=== PATIENT | female | born 1980 | race African-American/Black ===

== ENCOUNTER 2017-05-17 14:46 | Emergency (ER) | payer SELFPAY ==
[2017-05-17 14:52] VITALS: BP 145/88
[2017-05-17] MEDS ORDERED: NORMAL SALINE 1000 ML 1,000 ML IV PRN (16:33)
[2017-05-17] MEDS ORDERED: DIPHENHYDRAMINE HCL 50 MG/ML VIAL IV ONE (16:34)
[2017-05-17] MEDS ORDERED: METOCLOPRAMIDE HCL INJ/PF 10 MG/2 ML SDV IV ONE (16:34)
[2017-05-17 17:33] LABS: ABSOLUTE LYMPHOCYTES (AUTO) 1.6 10^3/uL (0.5-4.7); ABSOLUTE MONOCYTES (AUTO) 0.8 10^3/uL (0.1-1.4); BASOPHILS % (AUTO) 0.4 % (0-2); EOSINOPHILS % (AUTO) 0.7 % (0-6); HEMATOCRIT 33.6 % (36.0-47.0); HEMOGLOBIN 10.1 g/dL (12.0-15.5); HGB HCT DIFFERENCE -3.3; LYMPHOCYTES % (AUTO) 25.4 % (13-45); MEAN CORPUSCULAR HEMOGLOBIN 22.6 pg (27.0-33.4); MEAN CORPUSCULAR HGB CONC 30.2 g/dL (32.0-36.0); MEAN CORPUSCULAR VOLUME 75 fl (80-97); MONOCYTES % (AUTO) 11.9 % (3-13); RED CELL DISTRIBUTION WIDTH 17.6 % (11.5-14.0); SEGMENTED NEUTROPHILS % (AUTO) 61.6 % (42-78); WHITE BLOOD COUNT 6.5 10^3/uL (4.0-10.5)
[2017-05-17 17:47] LABS: ALANINE AMINOTRANSFERASE 22 U/L (9-52); ALBUMIN 3.7 g/dL (3.5-5.0); ALKALINE PHOSPHATASE 93 U/L (38-126); ANION GAP 12 (5-19); ASPARTATE AMINO TRANSFERASE 18 U/L (14-36); BILIRUBIN,DIRECT 0.3 mg/dL (0.0-0.4); BILIRUBIN,TOTAL 0.6 mg/dL (0.2-1.3); BLOOD UREA NITROGEN 10 mg/dL (7-20); CALCIUM 8.4 mg/dL (8.4-10.2); CARBON DIOXIDE 26 mmol/L (22-30); CHLORIDE 100 mmol/L (98-107); CREATININE RESULT 0.69 mg/dL (0.52-1.25); GLUCOSE 84 mg/dL (75-110); LIPASE 15.6 U/L (23-300); POTASSIUM 4.5 mmol/L (3.6-5.0); SODIUM 137.6 mmol/L (137-145); TOTAL PROTEIN 7.2 g/dL (6.3-8.2)
[2017-05-17] MEDS ORDERED: METRONIDAZOLE 500 MG TABLET PO ONE ×2 (18:01→20:32)
--- NOTE | 2017-05-17 19:28 | RADIOLOGY REPORT (SQ) ---
EXAM DESCRIPTION: U/S ABDOMEN COMPLETE W/DOPPLER COMPLETED DATE/TIME: 05/17/2017 7:12 pm REASON FOR STUDY: upper abdominal pain COMPARISON: None. TECHNIQUE: Dynamic and static grayscale images acquired of the abdomen and recorded on PACS. Victoriao james selected color Doppler and spectral images recorded. LIMITATIONS: Study limited due to acoustical interference from fat or from air in the bowel. FINDINGS: PANCREAS: Poorly seen secondary to acoustical interference from fat or from air in the bow el. No visualized masses. Duct normal caliber as seen. LIVER: Echotexture is coarse with increased echogenicity consistent with fatty infiltration. LIVER VASCULATURE: Normal directional flow of the main portal vein and hepatic veins. GALLBLADDER: No stones. Normal wall thickness. No pericholecystic fluid. ULTRASOUND-DETECTED BARRAGAN'S SIGN: Negative. INTRAHEPATIC DUCTS AND COMMON DUCT: CBD and intrahepatic ducts normal caliber. No filling defects. INFERIOR VENA CAVA: Normal flow. AORTA: No aneurysm. RIGHT KIDNEY: Normal size. Normal echogenicity. No solid or suspicious masses. No hydronephrosis. No calcifications. LEFT KIDNEY: Normal size. Normal echogenicity. No solid or suspicious masses. No hydronephrosis. No calcifications. SPLEEN:Normal size. No solid masses. PERITONEAL AND PLEURAL SPACES: No ascites or effusions. OTHER: No other significant finding. IMPRESSION: FATTY INFILTRATION OF THE LIVER. NO OTHER SIGNIFICANT FINDING IN THE VISUALIZED ABDOMEN. TECHNICAL DOCUMENTATION: JOB ID: [id number] [employer]- All Rights Reserved
--- NOTE | 2017-05-17 20:32 | ER Document Report ---
ED General - General Chief Complaint: Abdominal Pain Stated Complaint: ABDOMINAL PAIN Time Seen by Provider: 05/17/17 16:16 Mode of Arrival: Ambulatory Information source: Patient Notes: 37-year-old female presents to the emergency room with epigastric discomfort and watery diarrhea for the past week. Patient denies fever. Any vaginal discharge. She denies any lower abdominal pain. Any history of gallstones. She does have a history of morbid obesity. On any medicines and does not have any allergies. Not sexually active. TRAVEL OUTSIDE OF THE [place] IN LAST 30 DAYS: No - HPI Onset: Last week Onset/Duration: Gradual Quality of pain: Dull Severity: Moderate Pain Level: 3 Associated symptoms: Diarrhea. denies: Chest pain, Fever, Nausea, Vomiting, Shortness of breath Exacerbated by: Denies Relieved by: Denies Similar symptoms previously: No Recently seen / treated by doctor: No - Related Data Allergies/Adverse Reactions: No Known Allergies Allergy (Verified 05/17/17 14:50) Past Medical History - General Information source: Patient - Social History Smoking Status: Never Smoker Cigarette use (# per day): No Chew tobacco use (# tins/day): No Frequency of alcohol use: None Drug Abuse: None Lives with: Family Family History: Reviewed & Not Pertinent Patient has suicidal ideation: No Patient has homicidal ideation: No - Past Medical History Cardiac Medical History: Comment Only: Hx Hypertension - denies Pulmonary Medical History: Reports: Hx Asthma, Hx Bronchitis Endocrine Medical History: Denies: Hx Diabetes Mellitus Type 2 Renal/ Medical History: Denies: Hx Peritoneal Dialysis GI Medical History: Denies: Hx Gastritis, Hx Gastroesophageal Reflux Disease Past Surgical History: Reports: Hx Orthopedic Surgery - ganglion cyst - Immunizations Immunizations up to date: No Hx Diphtheria, Pertussis, Tetanus Vaccination: No Review of Systems - Review of Systems Constitutional: denies: Chills, Fever EENT: No symptoms reported Cardiovascular: No symptoms reported Respiratory: No symptoms reported Gastrointestinal: See HPI Genitourinary: No symptoms reported Female Genitourinary: No symptoms reported Musculoskeletal: No symptoms reported Skin: No symptoms reported Hematologic/Lymphatic: No symptoms reported Neurological/Psychological: No symptoms reported Physical Exam - Vital signs Vitals: Temp Pulse Resp BP Pulse Ox 98.8 F 120 H 24 H 145/88 H 95 05/17/17 14:50 05/17/17 14:50 05/17/17 14:50 05/17/17 14:50 05/17/17 14:50 Notes: Physical exam: GENERAL: 7-year-old female, alert and oriented 3, no acute distress HEAD: Atraumatic, normocephalic. EYES: Pupils equal round and reactive to light, extraocular movements intact, sclera anicteric, conjunctiva are normal. ENT: TMs normal, nares patent, oropharynx clear without exudates. Moist mucous membranes. NECK: Normal range of motion, supple without lymphadenopathy or JVD. LUNGS: Breath sounds clear to auscultation bilaterally and equal. No wheezes rales or rhonchi. HEART: Regular rate and rhythm without murmurs, rubs or gallops. ABDOMEN: Soft, normoactive bowel sounds. Does have left upper quadrant and epigastric tenderness. The sign. No guarding, no rebound. The abdomen is soft and nontender no masses appreciated. EXTREMITIES: Normal range of motion, no pitting or edema. No clubbing or cyanosis. NEUROLOGICAL: Cranial nerves II through XII grossly intact. Normal speech, normal gait. PSYCH: Normal mood, normal affect. SKIN: Warm, Dry, normal turgor, no rashes or lesions noted. Course - Re-evaluation Re-evalutation: 05/17/17 20:30 Treated with IV fluids, Reglan, Benadryl. Complete abdominal ultrasound showed no acute process. Stool studies were positive for C. difficile toxin. She was started on Flagyl. - Vital Signs Vital signs: Temp Pulse Resp BP Pulse Ox 98.8 F 120 H 24 H 145/88 H 95 05/17/17 14:50 05/17/17 14:50 05/17/17 14:50 05/17/17 14:50 05/17/17 14:50 - Laboratory Result Diagrams: 05/17/17 17:00 05/17/17 17:00 Laboratory results interpreted by me: 05/17/17 05/17/17 17:00 17:00 Hgb 10.1 L Hct 33.6 L MCV 75 L MCH 22.6 L MCHC 30.2 L RDW 17.6 H Lipase 15.6 L - Diagnostic Test Radiology reviewed: Image reviewed, Reports reviewed - US of the abdomen no acute intra-abdominal process Discharge - Discharge Clinical Impression: C. difficile diarrhea Condition: Stable Disposition: HOME, SELF-CARE Instructions: C. (Clostridium) Difficile Infection ([facility]) Additional Instructions: Instruction sheet for C. difficile colitis Antibiotics as prescribed: [facility] tends to be cheaper than other pharmacies. Plenty of fluids In the emergency room for worsening pain. Follow-up with a primary care doctor: I left the number for the [facility] Prescriptions: Metronidazole [Flagyl 500 mg Tablet] 500 mg PO TID #30 tablet
== END 2017-05-17 20:57 | disposition home or self-care (01) ==
LOC: ER 14:46
DX: A04.7 Enterocolitis due to Clostridium difficile (principal)
CPT/HCPCS: 99284; 96361; 96374; 96375; 36415; 87045; 87205; 83690; 85025; 80053; 87493 ×2; 83605; 76700; 93976; J1200; J2765; J7030

== ENCOUNTER 2017-06-30 15:57 | Emergency (ER) | payer SELFPAY ==
--- NOTE | 2017-06-30 16:22 | ER Document Report ---
ED Medical Screen (RME) - General Chief Complaint: Abdominal Pain Stated Complaint: ABDOMINAL PAIN Time Seen by Provider: 06/30/17 16:20 Notes: Patient states she has had 2 days of diffuse abdominal pain but no vomiting. She has had diarrhea. She states that the symptoms feel exactly like when she was diagnosed with C. difficile in April of this year. She states she did finish all the Flagyl that she was given for the C. difficile. She states she does not know how she contracted the C. difficile originally in April. She states she is not recently been on any antibiotics. She does not work in a healthcare setting. TRAVEL OUTSIDE OF THE [place] IN LAST 30 DAYS: No - Related Data Allergies/Adverse Reactions: No Known Allergies Allergy (Verified 06/30/17 15:59) Past Medical History - Social History Frequency of alcohol use: None Drug Abuse: None - Past Medical History Cardiac Medical History: Comment Only: Hx Hypertension - denies Pulmonary Medical History: Reports: Hx Asthma, Hx Bronchitis Endocrine Medical History: Denies: Hx Diabetes Mellitus Type 2 Renal/ Medical History: Denies: Hx Peritoneal Dialysis GI Medical History: Denies: Hx Gastritis, Hx Gastroesophageal Reflux Disease Past Surgical History: Reports: Hx Orthopedic Surgery - ganglion cyst - Immunizations Immunizations up to date: No Hx Diphtheria, Pertussis, Tetanus Vaccination: No
[2017-06-30 17:10] LABS: ABSOLUTE EOSINOPHILS # (AUTO) 0.3 10^3/uL (0.0-0.6); ABSOLUTE MONOCYTES (AUTO) 0.7 10^3/uL (0.1-1.4); ABSOLUTE NEUT (AUTO) 3.6 10^3/uL (1.7-8.2); BASOPHILS % (AUTO) 0.6 % (0-2); EOSINOPHILS % (AUTO) 4.8 % (0-6); HEMATOCRIT 33.1 % (36.0-47.0); HEMOGLOBIN 10.3 g/dL (12.0-15.5); HGB HCT DIFFERENCE -2.2; LYMPHOCYTES % (AUTO) 29.5 % (13-45); MEAN CORPUSCULAR HEMOGLOBIN 23.2 pg (27.0-33.4); MEAN CORPUSCULAR HGB CONC 31.2 g/dL (32.0-36.0); MEAN CORPUSCULAR VOLUME 74 fl (80-97); MONOCYTES % (AUTO) 11.1 % (3-13); RED BLOOD COUNT 4.46 10^6/uL (3.72-5.28); RED CELL DISTRIBUTION WIDTH 17.4 % (11.5-14.0); WHITE BLOOD COUNT 6.6 10^3/uL (4.0-10.5)
[2017-06-30 17:18] LABS: APPEARANCE,URINE SLIGHTLY-CLOUDY; BILIRUBIN,URINE NEGATIVE (NEGATIVE); GLUCOSE, URINE NEGATIVE (NEGATIVE); KETONES,URINE TRACE mg/dL (NEGATIVE); LEUKOCYTE ESTERASE,URINE SMALL (NEGATIVE); NITRITE,URINE NEGATIVE (NEGATIVE); PROTEIN,URINE NEGATIVE (NEGATIVE); URINE SPECIFIC GRAVITY 1.013; UROBILINOGEN,URINE NEGATIVE mg/dL (<2.0)
[2017-06-30 17:29] LABS: ALANINE AMINOTRANSFERASE 31 U/L (9-52); ALBUMIN 4.3 g/dL (3.5-5.0); ALKALINE PHOSPHATASE 114 U/L (38-126); ANION GAP 10 (5-19); ASPARTATE AMINO TRANSFERASE 21 U/L (14-36); BILIRUBIN,DIRECT 0.4 mg/dL (0.0-0.4); BILIRUBIN,TOTAL 0.6 mg/dL (0.2-1.3); BLOOD UREA NITROGEN 6 mg/dL (7-20); CALCIUM 9.2 mg/dL (8.4-10.2); CARBON DIOXIDE 28 mmol/L (22-30); CHLORIDE 103 mmol/L (98-107); CREATININE RESULT 0.65 mg/dL (0.52-1.25); GLUCOSE 91 mg/dL (75-110); LIPASE 31.3 U/L (23-300); POTASSIUM 4.4 mmol/L (3.6-5.0); TOTAL PROTEIN 7.6 g/dL (6.3-8.2)
--- NOTE | 2017-06-30 18:30 | ER Document Report ---
ED GI/ - General Mode of Arrival: Ambulatory Information source: Patient TRAVEL OUTSIDE OF THE [place] IN LAST 30 DAYS: No - HPI Patient complains to provider of: Abdominal pain Similar symptoms previously: Yes <JAYME RICHARDS - Last Filed: 06/30/17 20:57> <NERIS CONTRERAS - Last Filed: 06/30/17 23:03> - General Chief Complaint: Abdominal Pain Stated Complaint: ABDOMINAL PAIN Time Seen by Provider: 06/30/17 16:20 Notes: Patient is a 37 year old female that presents to the emergency department today with complaints of abdominal pain. Patient states that she was diagnosed with C. difficile at the end of April and her pain today is similar to then. Patient states she took her full dose of flagyl to completion. Patient states she has not been on any antibiotics since then. Patient denies vomiting. (JAYME RICHARDS ) - Related Data Allergies/Adverse Reactions: No Known Allergies Allergy (Verified 06/30/17 15:59) Past Medical History - General Information source: Patient - Social History Smoking Status: Never Smoker Cigarette use (# per day): No Frequency of alcohol use: None Drug Abuse: None Lives with: Family Family History: Reviewed & Not Pertinent Patient has suicidal ideation: No Patient has homicidal ideation: No - Past Medical History Cardiac Medical History: Comment Only: Hx Hypertension - denies Pulmonary Medical History: Reports: Hx Asthma, Hx Bronchitis Past Surgical History: Reports: Hx Orthopedic Surgery - ganglion cyst - Immunizations Immunizations up to date: No Hx Diphtheria, Pertussis, Tetanus Vaccination: No <JAYME RICHARDS - Last Filed: 06/30/17 20:57> Review of Systems - Review of Systems Constitutional: No symptoms reported EENT: No symptoms reported Cardiovascular: No symptoms reported Respiratory: No symptoms reported Gastrointestinal: See HPI, Abdominal pain, Diarrhea Genitourinary: No symptoms reported Female Genitourinary: No symptoms reported Musculoskeletal: No symptoms reported Skin: No symptoms reported Hematologic/Lymphatic: No symptoms reported Neurological/Psychological: No symptoms reported -: Yes All other systems reviewed and negative <JAYME RICHARDS - Last Filed: 06/30/17 20:57> Physical Exam <JAYME RICHARDS - Last Filed: 06/30/17 20:57> <NERIS CONTRERAS - Last Filed: 06/30/17 23:03> - Vital signs Vitals: Temp Pulse Resp BP Pulse Ox 97.8 F 74 17 138/75 H 100 06/30/17 22:47 06/30/17 22:47 06/30/17 22:47 06/30/17 22:47 06/30/17 22:47 - Notes Notes: Physical Exam: General: Alert, appears well. HEENT: Normocephalic. Atraumatic. PERRL. Extraocular movements intact. Oropharynx clear. Neck: Supple. Non-tender. Respiratory: No respiratory distress. Clear and equal breath sounds bilaterally. Cardiovascular: Regular rate and rhythm. Abdominal: Obese. Mild bilateral lower quadrant tenderness with palpation. No distension. Normal Bowel Sounds. Back: Non-tender. No deformity or step off. Extremities: Moves all four extremities. Upper extremities: Normal inspection. Normal ROM. Lower extremities: Normal inspection. No edema. Normal ROM. Neurological: Normal cognition. AAOx4. Normal speech. Psychological: Normal affect. Normal Mood. Skin: Warm. Dry. Normal color. (JAYME RICHARDS) Course - Laboratory Result Diagrams: 06/30/17 16:40 06/30/17 16:40 <JAYME RICHARDS - Last Filed: 06/30/17 20:57> - Laboratory Result Diagrams: 06/30/17 16:40 06/30/17 16:40 <NERIS CONTRERAS - Last Filed: 06/30/17 23:03> - Re-evaluation Re-evalutation: 06/30/17 19:14 Went to reevaluate patient, currently in bathroom. (JAYME RICHARDS) 06/30/17 23:02 Patient is a 37-year-old female who comes in complaining of some abdominal cramping and diarrhea. Patient was recently treated for C. difficile in April. Stool is negative for that this evening. Patient states that she had some food that disagreed with her last night and has had diarrhea today. I have actually looked at her stool and there is no evidence for blood or mucus. Is not particularly watery, just loose. I do not think that the patient has a bacterial infection at this time and starting her on antibiotics could predispose her to getting C. difficile again. Patient will be discharged home with Bentyl and Imodium. She is to follow-up on school stool cultures which have been sent. Understands and agrees with plan. Stable for discharge. Return if any worsening or concerning symptoms. (NERIS CONTRERAS) - Vital Signs Vital signs: Temp Pulse Resp BP Pulse Ox 97.8 F 74 17 138/75 H 100 06/30/17 22:47 06/30/17 22:47 06/30/17 22:47 06/30/17 22:47 06/30/17 22:47 - Laboratory Laboratory results interpreted by me: 06/30/17 06/30/17 06/30/17 16:40 16:40 16:40 Hgb 10.3 L Hct 33.1 L MCV 74 L MCH 23.2 L MCHC 31.2 L RDW 17.4 H BUN 6 L Urine Ketones TRACE H Ur Leukocyte Esterase SMALL H Discharge <JAYME RICHARDS - Last Filed: 06/30/17 20:57> <NERIS CONTRERAS - Last Filed: 06/30/17 23:03> - Discharge Clinical Impression: Diarrhea Qualifiers: Diarrhea type: infectious Qualified Code(s): A09 - Infectious gastroenteritis and colitis, unspecified Condition: Stable Disposition: HOME, SELF-CARE Instructions: Diarrhea, Nonspecific ([facility]), Antispasmodics ([facility]) Additional Instructions: Please follow-up with your doctor. Please be aware that you may be getting called for stool culture results. You did not test positive for C. difficile today. Prescriptions: Dicyclomine HCl [Bentyl 20 mg Tablet] 20 mg PO TIDP PRN #30 tablet PRN Reason: Scribe Attestation: 06/30/17 23:03 I personally performed the services described in the documentation, reviewed and edited the documentation which was dictated to the scribe in my presence, and it accurately records my words and actions. (NERIS CONTRERAS) Scribe Documentation - Scribe Written by Juan A:: Juan A Alfaro, 06/30/20172100 acting as scribe for :: [place] <JAYME RICHARDS - Last Filed: 06/30/17 20:57>
[2017-06-30] MEDS ORDERED: ONDANSETRON 4 MG TAB.RAPDIS PO ONE (21:05)
[2017-06-30] MEDS ORDERED: LOPERAMIDE HCL 2 MG CAPSULE PO ONE (21:05)
[2017-06-30] MEDS ORDERED: OXYCODONE-ACETAMINOPHEN 5-325 MG TABLET PO ONE (21:05)
[2017-06-30] MEDS ORDERED: ONDANSETRON ODT 4 MG TAB (6 TAB/DSPK) PO PRN (22:22)
[2017-06-30] MEDS ORDERED: HYDROCODONE/ACETAMINOPHEN 5-325 MG 6 TAB/DSPK PO PRN (22:22)
[2017-06-30] MEDS ORDERED: DICYCLOMINE HCL 20 MG TABLET PO ONE (22:23)
[2017-06-30 22:50] VITALS: BP 138/75
== END 2017-06-30 22:47 | disposition home or self-care (01) ==
LOC: ER 15:57
DX: A09 Infectious gastroenteritis and colitis, unspecified (principal); R10.9 Unspecified abdominal pain; E66.9 Obesity, unspecified
CPT/HCPCS: 99283; 36415; 87045; 89055; 87205; 83690; 85025; 81025; 80053; 81001; 87493 ×2; J3490; S0119

== ENCOUNTER 2018-09-24 12:32 | Emergency (ER) | payer OTHER ==
--- NOTE | 2018-09-24 13:26 | ER Document Report ---
ED General - General Chief Complaint: Shortness Of Breath Stated Complaint: SHORTNESS OF BREATH Time Seen by Provider: 09/24/18 13:15 Mode of Arrival: Ambulatory Information source: Patient TRAVEL OUTSIDE OF THE [place] IN LAST 30 DAYS: No - HPI Patient complains to provider of: dyspnea Onset: Other - 38-year-old morbidly obese female that presents for evaluation of dyspnea. She notes that she has been very short of breath over the last couple of days and also has been having episodes in which she occasionally nods off because of just being tired. She does not have any known health problems except for high blood pressure and a history of an enlarged heart without any obvious cause identified in the past. She denies any chest pain does endorse shortness of breath, denies any leg swelling focally any history of clots in the past or other symptoms. - Related Data Allergies/Adverse Reactions: No Known Allergies Allergy (Verified 09/24/18 12:34) Past Medical History - General Information source: Patient - Social History Smoking Status: Unknown if Ever Smoked Chew tobacco use (# tins/day): No Frequency of alcohol use: None Drug Abuse: None Family History: Reviewed & Not Pertinent Patient has suicidal ideation: No Patient has homicidal ideation: No - Past Medical History Cardiac Medical History: Comment Only: Hx Hypertension - denies Pulmonary Medical History: Reports: Hx Asthma, Hx Bronchitis Endocrine Medical History: Denies: Hx Diabetes Mellitus Type 2 Renal/ Medical History: Denies: Hx Peritoneal Dialysis GI Medical History: Denies: Hx Gastritis, Hx Gastroesophageal Reflux Disease Past Surgical History: Reports: Hx Orthopedic Surgery - ganglion cyst - Immunizations Immunizations up to date: No Hx Diphtheria, Pertussis, Tetanus Vaccination: No Review of Systems - Review of Systems -: Yes All other systems reviewed and negative Physical Exam - Vital signs Vitals: Resp Pulse Ox 19 98 09/24/18 12:47 09/24/18 12:47 - General General appearance: Alert In distress: Mild - HEENT Head: Normocephalic Eyes: Normal Conjunctiva: Normal Cornea: Normal Extraocular movements intact: Yes Eyelashes: Normal Pupils: PERRL - Respiratory Respiratory status: Tachypnea Chest status: Nontender Breath sounds: Other - Limited secondary to habitus Chest palpation: Normal - Cardiovascular Rhythm: Regular, Tachycardia - Abdominal Inspection: Morbidly Obese Bowel sounds: Normal Tenderness: Nontender - Back Back: Normal - Extremities General upper extremity: Tender, Edema General lower extremity: Tender, Edema - Neurological Neuro grossly intact: Yes Cognition: Normal Orientation: AAOx4 Andres Coma Scale Eye Opening: Spontaneous Andres Coma Scale Verbal: Oriented Andres Coma Scale Motor: Obeys Commands Andres Coma Scale Total: 15 Speech: Normal Cranial nerves: Normal Motor strength normal: LUE, RUE, LLE, RLE - Psychological Associated symptoms: Normal affect Course - Re-evaluation Re-evalutation: 09/24/18 16:23 Morbidly obese 38-year-old female presents for evaluation of shortness of breath. On examination she is modestly tachypneic and requires 2 L of oxygen by nasal cannula to maintain a normal oxygen saturation. Examination is limited secondary to her size. We will obtain x-ray, troponin EKG CBC CMP and a d-dimer given her elevated heart rate and dyspnea. Chest x-ray is unremarkable troponins negative EKG is nondiagnostic. Her CBC and CMP are unremarkable at this time. Currently her d-dimer is elevated and there is concern for a possible pulmonary embolism given her profound obesity and generally immobile state. Have contacted radiology including nuclear medicine and CT imaging, because of her weight she is not eligible to be scanned here via either CTA or VQ scan. Because she has a positive d-dimer will plan for this patient undergo further imaging diagnoses [facility]. 09/24/18 16:53 Contacted [facility], they have concerned about this patient's girth and ability to fit in their CT scanner as such we will obtain measurement. 09/24/18 17:43 Because of the concern of underlying pulmonary embolism did speak to [facility] in [facility] with Dr. Lara who agrees to accept this patient in transfer for concern of potential pulmonary embolus. Current plan is for this patient undergo transfer to [place]. We will administer a low-dose diuretic here. Patient will require potential further imaging or diagnostics there for concern of potential pulmonary embolism. Currently she is hemodynamically stable while on 2 L nasal cannula. Patient CARE was signed out to Dr. Robertson - Vital Signs Vital signs: Temp Pulse Resp BP Pulse Ox 25 H 152/100 H 99 09/24/18 12:50 09/24/18 12:50 09/24/18 12:50 - Laboratory Result Diagrams: 09/24/18 14:25 09/24/18 14:25 Laboratory results interpreted by me: 09/24/18 09/24/18 09/24/18 14:25 14:25 14:25 Hgb 11.8 L MCV 78 L MCH 24.6 L MCHC 31.5 L RDW 17.3 H D-Dimer Sodium 145.3 H Carbon Dioxide 33 H NT-Pro-B Natriuret Pep 233 H 09/24/18 14:25 Hgb MCV MCH MCHC RDW D-Dimer 1.02 H Sodium Carbon Dioxide NT-Pro-B Natriuret Pep Discharge - Discharge Clinical Impression: Hypoxia, Tachycardia, D-dimer, elevated, Elevated brain natriuretic peptide ( BNP) level Condition: Stable [facility]
--- NOTE | 2018-09-24 14:02 | RADIOLOGY REPORT (SQ) ---
EXAM DESCRIPTION: CHEST SINGLE VIEW COMPLETED DATE/TIME: 09/24/2018 1:40 pm REASON FOR STUDY: short of breath COMPARISON: 05/23/2016 EXAM PARAMETERS: NUMBER OF VIEWS: One view. TECHNIQUE: Single frontal radiographic view of the chest acquired. RADIATION DOSE: NA LIMITATIONS: None. FINDINGS: LUNGS AND PLEURA: No opacities, masses or pneumothorax. No pleural effusion. MEDIASTINUM AND HILAR STRUCTURES: No masses. Contour normal. HEART AND VASCULAR STRUCTURES: Cardiomegaly. No pulmonary edema. BONES: No acute findings. HARDWARE: None in the chest. OTHER: No other significant finding. IMPRESSION: Cardiomegaly without pulmonary edema. TECHNICAL DOCUMENTATION: JOB ID: [id number] [employer]- All Rights Reserved Reading location - IP/workstation name: [email or web address]
[2018-09-24 14:36] LABS: ABSOLUTE BASOPHILS # (AUTO) 0.1 10^3/uL (0.0-0.2); ABSOLUTE EOSINOPHILS # (AUTO) 0.3 10^3/uL (0.0-0.6); ABSOLUTE LYMPHOCYTES (AUTO) 2.3 10^3/uL (0.5-4.7); ABSOLUTE NEUT (AUTO) 5.6 10^3/uL (1.7-8.2); BASOPHILS % (AUTO) 0.8 % (0-2); EOSINOPHILS % (AUTO) 3.1 % (0-6); HEMATOCRIT 37.5 % (36.0-47.0); HEMOGLOBIN 11.8 g/dL (12.0-15.5); LYMPHOCYTES % (AUTO) 24.5 % (13-45); MEAN CORPUSCULAR HEMOGLOBIN 24.6 pg (27.0-33.4); MEAN CORPUSCULAR HGB CONC 31.5 g/dL (32.0-36.0); MEAN CORPUSCULAR VOLUME 78 fl (80-97); MONOCYTES % (AUTO) 10.7 % (3-13); PLATELET COUNT 347 10^3/uL (150-450); RED CELL DISTRIBUTION WIDTH 17.3 % (11.5-14.0); SEGMENTED NEUTROPHILS % (AUTO) 60.9 % (42-78); TOTAL CELLS COUNTED % (AUTO) 100 %; WHITE BLOOD COUNT 9.2 10^3/uL (4.0-10.5)
[2018-09-24 14:56] LABS: ALANINE AMINOTRANSFERASE 17 U/L (9-52); ALBUMIN 4.1 g/dL (3.5-5.0); ALKALINE PHOSPHATASE 89 U/L (38-126); ANION GAP 9 (5-19); ASPARTATE AMINO TRANSFERASE 14 U/L (14-36); BILIRUBIN,DIRECT 0.2 mg/dL (0.0-0.4); BILIRUBIN,TOTAL 0.4 mg/dL (0.2-1.3); BLOOD UREA NITROGEN 15 mg/dL (7-20); CALCIUM 9.2 mg/dL (8.4-10.2); CARBON DIOXIDE 33 mmol/L (22-30); CHLORIDE 103 mmol/L (98-107); GLUCOSE 92 mg/dL (75-110); POTASSIUM 4.5 mmol/L (3.6-5.0); SODIUM 145.3 mmol/L (137-145); TOTAL PROTEIN 7.5 g/dL (6.3-8.2)
[2018-09-24 15:31] LABS: CREATINE KINASE MB 0.71 ng/mL (<4.55); NT PRO BNP 233 pg/mL (<125)
[2018-09-24 15:36] LABS: TROPONIN I < 0.012 ng/mL
[2018-09-24 19:56] VITALS: BP 134/118
--- NOTE | 2018-09-24 20:06 | ER Document Report ---
Doctor's Note Notes: 09/24/18 20:05 Patient evaluated upon transfer team arrival. She is alert, awake and in no acute distress. Vital signs stable. Patient is stable for transfer.
== END 2018-09-24 20:11 | disposition short-term general hospital (02) ==
LOC: ER 12:32
DX: R09.02 Hypoxemia (principal); R00.0 Tachycardia, unspecified; R79.1 Abnormal coagulation profile; R79.89 Other specified abnormal findings of blood chemistry; R06.02 Shortness of breath; I51.7 Cardiomegaly; I10 Essential (primary) hypertension; E66.01 Morbid (severe) obesity due to excess calories; J45.909 Unspecified asthma, uncomplicated
CPT/HCPCS: 36415; 71045; 80053; 82553; 83605; 83880; 84484; 85025; 85379; 99285

== ENCOUNTER → 2019-03-04 | Outpatient (CLI) | payer OTHER ==
[~2019-03-04] MED LIST: ALBUTEROL SULFATE 0.083% NEB 2.5 MG/3 ML AMPUL NEB ONE
--- NOTE | 2019-03-07 11:14 | Pulmonary Function Test ---
Pulmonary Function Test Date of Procedure:: 03/07/19 INDICATION:: Dyspnea Referring Provider: Dr. Rainey Senior Electronics Engineer: Araceli Bolanos PLOW HOLDER - Report Spirometry: FVC 1.92 L 58% postbronchodilator 1.92 L 58% FEV1 1.63 L 59% postbronchodilator 1.67 L 60% FEV1/FVC % 85 postbronchodilator 87 predicted 86 FEF 25-75% 2.26 L 70% postbronchodilator 2.45 L 75% Impression: No evidence to s suspect obstructive ventilatory defect. Restrictive defect is inferred by the decrease in FVC. Restrictive defect cannot be diagnosed on the basis of spirometry alone. If clinically indicated complete pulmonary function test would be warranted
== END ==
LOC: RT 11:47
DX: R06.02 Shortness of breath (principal)
CPT/HCPCS: 94060; 94761